=== PATIENT | female | born 1950 | race Asian ===

== ENCOUNTER → 2016-06-21 | Outpatient (CLI) | payer MEDICARE, OTHER ==
[~2016-06-21] MED LIST: ALEN70TA5 PO; CALC1TAB PO; CHOL20003 PO; HYDR12.58 PO; HYDR25TA6 PO; LORA1TAB46 PO; METO10TA82 PO; MULT-750 PO; OMNIPAQUE 350 MG/ML, 100ML BOTTLE ONE; ONDA4TAB7 PO; OXYC-223 PO; [UNRECOGNIZED DRUG - OTHER] PO; [UNRECOGNIZED DRUG - OTHER] PO
== END | disposition home or self-care (01) ==
LOC: CFH 11:25
PROVIDERS: ATTEND Specialist
DX: C56.9 Malignant neoplasm of unspecified ovary (principal); N13.30 Unspecified hydronephrosis; E04.2 Nontoxic multinodular goiter; J98.11 Atelectasis
CPT/HCPCS: 71260; 74177; Q9967

== ENCOUNTER → 2016-12-25 | Outpatient (CLI) | payer MEDICARE, OTHER ==
[~2016-12-25] MED LIST changes: +CHOL2000 PO; -CHOL20003 PO; -OXYC-223 PO; +OXYC-306 PO
== END | disposition home or self-care (01) ==
LOC: CFH 09:03
PROVIDERS: ATTEND Specialist
DX: C79.89 Secondary malignant neoplasm of other specified sites (principal); C56.9 Malignant neoplasm of unspecified ovary; E04.2 Nontoxic multinodular goiter; J84.10 Pulmonary fibrosis, unspecified; N13.30 Unspecified hydronephrosis
CPT/HCPCS: 71260; 74177; 82565; Q9967

== ENCOUNTER → 2017-07-25 | Outpatient (CLI) | payer MEDICARE, OTHER | END | disposition home or self-care (01) | LOC: RAD 11:49 | PROVIDERS: ATTEND Specialist | DX: C79.89 Secondary malignant neoplasm of other specified sites (principal); C56.9 Malignant neoplasm of unspecified ovary; N13.30 Unspecified hydronephrosis; J90 Pleural effusion, not elsewhere classified; R91.8 Other nonspecific abnormal finding of lung field | CPT/HCPCS: 71260; 74177; Q9967 ==

== ENCOUNTER 2017-08-05 13:53 | Inpatient (IN) | payer MEDICARE, OTHER ==
[~2017-08-05] VITALS: Ht 160 cm; Wt 53.2 kg
[~2017-08-05 13:53] MED LIST changes: -OMNIPAQUE 350 MG/ML, 100ML BOTTLE ONE
[2017-08-05] MEDS ORDERED: OXYC-306 PO (13:57)
[2017-08-05] MEDS ORDERED: TUMS (13:57)
[2017-08-05] MEDS ORDERED: ASCO-90 PO (13:57)
[2017-08-05] MEDS ORDERED: DOCU240C53 PO (13:57)
[2017-08-05] MEDS ORDERED: MAGN400O7 PO (13:57)
[2017-08-05] MEDS ORDERED: CHOL200024 PO (13:57)
[2017-08-05] MEDS ORDERED: RANI150T23 PO (13:57)
[2017-08-05] MEDS ORDERED: METHYLNALTREXONE 12 MG/0.6 ML SQ ONE ×3 (14:30→18:30)
[2017-08-05] MEDS ORDERED: FAMOTIDINE 20 MG/2 ML IVP ONE (14:30)
[2017-08-05] MEDS ORDERED: SODIUM CHLORIDE FLUSH 10ML SYR IVF ONE (14:30)
[2017-08-05] MEDS ORDERED: SODIUM CHLORIDE 0.9% 1,000ML IVBOLUS ONE (14:30)
[2017-08-05] MEDS ORDERED: ONDANSETRON ODT 4 MG PO ONE (14:30)
[2017-08-05] MEDS ORDERED: FAMOTIDINE 20 MG/2 ML ONE (14:37)
[2017-08-05] MEDS ORDERED: ONDANSETRON ODT 4 MG ONE (14:37)
[2017-08-05] MEDS ORDERED: SODIUM CHLORIDE 0.9% 1,000 ML IV ONE (16:51)
[2017-08-05] MEDS ORDERED: SODIUM CHLORIDE FLUSH 10ML SYR IVF PRN (17:00)
[2017-08-05] MEDS ORDERED: ENALAPRILAT 1.25 MG/ML, 2ML IVPush PRN (17:30)
[2017-08-05] MEDS ORDERED: PROMETHAZINE 25 MG/ML, 1ML IM PRN (17:30)
[2017-08-05] MEDS ORDERED: METOCLOPRAMIDE 5 MG/ML, 2ML IVPush PRN (17:30)
[2017-08-05] MEDS ORDERED: ONDANSETRON 2MG/ML, 2ML IVPush PRN (17:30)
[2017-08-05] MEDS ORDERED: morphine SULFATE 10 MG/ML, 1ML IVPush PRN (17:30)
[2017-08-05] MEDS ORDERED: LABETALOL 5MG/ML, 20ML IVPush PRN (17:30)
[2017-08-05] MEDS ORDERED: PINK LADY ENEMA 1,000 ML PR ONE (18:00)
[2017-08-05] MEDS: NS + 20MEQ KCL 1,000 ML IV SCH (18:13)
[2017-08-05] MEDS: ENOXAPARIN 40 MG/0.4 ML SQ SCH ×2 (18:15→18:21)
[2017-08-05 18:17] VITALS: BP 138/74
[2017-08-06 02:40] VITALS: BP 167/75
[2017-08-06] MEDS: NS + 20MEQ KCL 1,000 ML IV SCH (03:22)
[2017-08-06 04:20] LABS: BASOPHILS # (AUTO) 0.02 x10^3/uL (0-0.1); BASOPHILS % (AUTO) 0 % (0-1); EOSINOPHILS # (AUTO) 0.16 x10^3/uL (0-0.4); EOSINOPHILS % (AUTO) 1 % (1-7); LYMPHOCYTES % (AUTO) 16 % (22-44); MD NO; MEAN CORPUSCULAR HEMOGLOBIN 27.7 pg (27.0-34.8); MEAN CORPUSCULAR HGB CONC 32.6 g/dL (32.4-35.8); MEAN CORPUSCULAR VOLUME 84.9 fL (80-100); MEAN PLATELET VOLUME 8.1 fL (7.4-10.4); MONOCYTES # (AUTO) 1.29 x10^3/uL (0.2-0.8); MONOCYTES % (AUTO) 10 % (2-9); NEUTROPHILS # (AUTO) 9.52 x10^3/uL (1.8-6.8); NEUTROPHILS % (AUTO) 73 % (42-75); PLATELET COUNT 375 x10^3/uL (130-400); RED BLOOD COUNT 3.93 x10^6/uL (3.82-5.3); RED CELL DISTRIBUTION WIDTH 14.3 % (9.6-15.2)
[2017-08-06 04:29] LABS: ANION GAP 11 mmol/L (5-15); CALCIUM 9.1 mg/dL (8.5-10.1); CHLORIDE 105 mmol/L (98-107)
[2017-08-06 04:31] LABS: CREATININE 2.22 mg/dL (0.55-1.02)
[2017-08-06] MEDS: LACTATED RINGERS 1,000 ML IV SCH ×4 (07:56→22:59)
[2017-08-06 08:03] VITALS: BP 145/75
[2017-08-06] MEDS: ONDANSETRON ODT 4 MG PO PRN (08:08)
[2017-08-06] MEDS: OXYcodone/APAP 7.5/325MG TABLET PO PRN ×2 (08:08→18:17)
[2017-08-06 15:00] LABS: ANION GAP 9 mmol/L (5-15); CALCIUM 8.9 mg/dL (8.5-10.1); CHLORIDE 103 mmol/L (98-107); CREATININE 2.29 mg/dL (0.55-1.02)
[2017-08-06 15:28] VITALS: BP 119/66
[2017-08-06] MEDS: METOCLOPRAMIDE 5 MG/ML, 2ML IVPush PRN (15:45)
[2017-08-06 17:18] LABS: MICROSCOPIC NOT IND
[2017-08-06 17:21] LABS: CULTURE INDICATED? NO
[2017-08-06 17:33] LABS: CREATININE,URINE RANDOM 52.1 mg/dL
[2017-08-06] MEDS: ENOXAPARIN 30 MG/0.3 ML SQ SCH (17:52)
[2017-08-06 20:00] VITALS: BP_SYST 111; BP_SYST 124; BP_DIAS 63
[2017-08-06] MEDS ORDERED: DOCUSATE 100 MG CAPSULE PO SCH (21:30)
[2017-08-07 02:00] VITALS: BP 125/63
[2017-08-07] MEDS: LACTATED RINGERS 1,000 ML IV SCH (03:39)
[2017-08-07 07:38] VITALS: BP 166/83
[2017-08-07] MEDS ORDERED: GLYCERIN ADULT SUPP PR ONE (08:00)
[2017-08-07 08:12] LABS: BASOPHILS % (AUTO) 1 % (0-1); EOSINOPHILS # (AUTO) 0.21 x10^3/uL (0-0.4); EOSINOPHILS % (AUTO) 1 % (1-7); LYMPHOCYTES % (AUTO) 12 % (22-44); MD NO; MEAN CORPUSCULAR HEMOGLOBIN 27.6 pg (27.0-34.8); MEAN CORPUSCULAR HGB CONC 32.6 g/dL (32.4-35.8); MEAN CORPUSCULAR VOLUME 84.8 fL (80-100); MEAN PLATELET VOLUME 7.8 fL (7.4-10.4); MONOCYTES % (AUTO) 6 % (2-9); NEUTROPHILS # (AUTO) 12.92 x10^3/uL (1.8-6.8); NEUTROPHILS % (AUTO) 80 % (42-75); PLATELET COUNT 398 x10^3/uL (130-400); RED BLOOD COUNT 4.21 x10^6/uL (3.82-5.3); RED CELL DISTRIBUTION WIDTH 14.3 % (9.6-15.2)
[2017-08-07 08:13] LABS: ALANINE AMINOTRANSFERASE 13 U/L (12-78); ALBUMIN 2.4 g/dL (3.4-5.0); ANION GAP 10 mmol/L (5-15); CALCIUM 8.9 mg/dL (8.5-10.1); CHLORIDE 105 mmol/L (98-107); CREATININE 2.05 mg/dL (0.55-1.02)
[2017-08-07 08:15] LABS: ALKALINE PHOSPHATASE 111 U/L (45-117); BILIRUBIN,TOTAL 0.3 mg/dL (0.2-1.0)
[2017-08-07] MEDS: ONDANSETRON ODT 4 MG PO PRN ×2 (08:20→15:14)
[2017-08-07] MEDS: DOCUSATE 100 MG CAPSULE PO SCH ×2 (08:20→21:00)
[2017-08-07] MEDS: METOCLOPRAMIDE 5 MG/ML, 2ML IVPush PRN ×2 (08:21→15:14)
[2017-08-07] MEDS ORDERED: POLYETHYLENE GLYCOL 17 GM PACKET PO ONE (08:30)
[2017-08-07] MEDS: OXYcodone/APAP 7.5/325MG TABLET PO PRN (11:52)
[2017-08-07 12:05] VITALS: BP 133/71
[2017-08-07] MEDS ORDERED: GOLYTELY 4,000ML ORAL.SOL PO ONE (12:30)
[2017-08-07] MEDS ORDERED: METHYLNALTREXONE 12 MG/0.6 ML SQ SCH (15:00)
[2017-08-07] MEDS ORDERED: PINK LADY ENEMA 1,000 ML PR ONE (15:00)
[2017-08-07] MEDS ORDERED: MAGNESIUM CITRATE 300ML ORAL SOL PO ONE (15:00)
[2017-08-07] MEDS: ENOXAPARIN 30 MG/0.3 ML SQ SCH (18:00)
[2017-08-07 20:17] VITALS: BP 145/68
[2017-08-08 02:00] VITALS: BP 124/66
[2017-08-08] MEDS: DOCUSATE 100 MG CAPSULE PO SCH (10:30)
[2017-08-08] MEDS: ONDANSETRON ODT 4 MG PO PRN (12:17)
[2017-08-08 13:19] VITALS: BP 158/83
== END 2017-08-08 16:04 | disposition home or self-care (01) | DRG 682 ==
LOC: ED 16:24 → EDIP 16:51 → 3NW 17:35
PROVIDERS: ADMIT Hospitalist; ATTEND Hospitalist
DX: N17.9 Acute kidney failure, unspecified (principal); R65.11 Systemic inflammatory response syndrome (SIRS) of non-infectious origin with acute organ dysfunction; E43 Unspecified severe protein-calorie malnutrition; E87.1 Hypo-osmolality and hyponatremia; D72.829 Elevated white blood cell count, unspecified; G89.29 Other chronic pain; T40.605A Adverse effect of unspecified narcotics, initial encounter; Z66 Do not resuscitate; N13.30 Unspecified hydronephrosis; E88.09 Other disorders of plasma-protein metabolism, not elsewhere classified; K59.03 Drug induced constipation; E86.1 Hypovolemia; E86.0 Dehydration; N18.9 Chronic kidney disease, unspecified; I12.9 Hypertensive chronic kidney disease with stage 1 through stage 4 chronic kidney disease, or unspecified chronic kidney disease; Z85.43 Personal history of malignant neoplasm of ovary; Z79.891 Long term (current) use of opiate analgesic; Z90.710 Acquired absence of both cervix and uterus
CPT/HCPCS: 36415; 74018; 74021; 74176; 76770; 80048; 80053; 81003; 82436; 82570; 83735; 84100; 84133; 84156; 84300; 85025; 96361; 96372; 96374; 99285; J1650; J3480; Q0162; J2765; J7030; J7120; S0028

== ENCOUNTER 2017-08-11 10:10 | Inpatient (IN) | payer MEDICARE, OTHER ==
[~2017-08-11] VITALS: Ht 160 cm; Wt 69.3 kg
[~2017-08-11 10:10] MED LIST changes: +ASCO-90 PO; +CHOL200024 PO; +DOCU240C53 PO; +MAGN400O7 PO; +RANI150T23 PO; +TUMS
[2017-08-11] MEDS ORDERED: LACTATED RINGERS 1,000 ML IV SCH (13:05)
[2017-08-11 13:24] VITALS: BP 161/89
[2017-08-11] MEDS ORDERED: TAMSULOSIN 0.4 MG CAP.ER.24H PO ONE (13:30)
[2017-08-11] MEDS ORDERED: SCOPOLAMINE PATCH, 1.5MG PATCH.TD72 TD ONE ×2 (13:30→13:58)
[2017-08-11] MEDS ORDERED: GABAPENTIN 300 MG CAPSULE PO ONE (13:30)
[2017-08-11] MEDS ORDERED: ACETAMINOPHEN 500 MG TABLET PO ONE (13:30)
[2017-08-11] MEDS ORDERED: METOCLOPRAMIDE 10MG TABLET PO ONE (13:30)
[2017-08-11] MEDS ORDERED: ONDANSETRON ODT 8 MG PO ONE (13:30)
[2017-08-11] MEDS ORDERED: ACETAMINOPHEN 500 MG TABLET ONE (13:57)
[2017-08-11] MEDS ORDERED: TAMSULOSIN 0.4 MG CAP.ER.24H ONE (13:57)
[2017-08-11] MEDS ORDERED: FAMOTIDINE 20 MG TABLET ONE (13:58)
[2017-08-11] MEDS ORDERED: ONDANSETRON ODT 8 MG ONE (13:59)
[2017-08-11] MEDS ORDERED: GABAPENTIN 300 MG CAPSULE ONE (13:59)
[2017-08-11] MEDS ORDERED: METOCLOPRAMIDE 10MG TABLET ONE (14:08)
[2017-08-11] MEDS ORDERED: MIDAZOLAM 1 MG/ML, 2ML ONE (19:05)
[2017-08-11] MEDS ORDERED: FENTANYL PF 100 MCG/2ML ONE ×3 (19:08→22:00)
[2017-08-11] MEDS ORDERED: BUPIVACAINE/PF-EPI 0.5% 1:200K ONE (20:25)
[2017-08-11] MEDS ORDERED: PHENYLEPHRINE 10 MG/ML ONE (20:41)
[2017-08-11] MEDS ORDERED: ROCURONIUM 10 MG/ML,10ML ONE (20:41)
[2017-08-11] MEDS ORDERED: DEXAMETHASONE 4 MG/ML, 1ML ONE (20:41)
[2017-08-11] MEDS ORDERED: CEFAZOLIN 1,000 MG ONE (20:41)
[2017-08-11] MEDS ORDERED: NEOSTIGMINE 1 MG/ML, 10ML ONE (20:41)
[2017-08-11] MEDS ORDERED: GLYCOPYRROLATE 0.2MG/1ML, 5ML ONE (20:41)
[2017-08-11] MEDS ORDERED: PROPOFOL 10 MG/ML, 20ML ONE (20:41)
[2017-08-11] MEDS ORDERED: SUCCINYLCHOLINE 20 MG/ML, 10ML ONE (20:41)
[2017-08-11] MEDS ORDERED: OXYcodone 5 MG/5 ML ORAL.SOL UDC ONE (22:00)
[2017-08-11] MEDS: FENTANYL PF 100 MCG/2ML IV PRN ×3 (22:01→22:20)
[2017-08-11] MEDS ORDERED: morphine SULFATE 10 MG/ML, 1ML ONE (22:21)
[2017-08-11] MEDS: morphine SULFATE 10 MG/ML, 1ML IV PRN ×2 (22:23→22:29)
[2017-08-11] MEDS ORDERED: OXYcodone 5 MG/5 ML ORAL.SOL UDC PO PRN (22:30)
[2017-08-11] MEDS ORDERED: MORPHINE SULFATE 4 MG/ML, 1ML IV PRN (23:45)
[2017-08-11] MEDS ORDERED: OXYcodone/APAP 5/325MG TABLET PO PRN (23:45)
[2017-08-11] MEDS ORDERED: morphine SULFATE 10 MG/ML, 1ML IV PRN (23:45)
[2017-08-12 00:15] VITALS: BP 107/63
[2017-08-12] MEDS: D5%-0.45% NACL 1,000 ML IV SCH ×4 (01:56→19:11)
[2017-08-12 04:18] VITALS: BP 119/64
[2017-08-12 06:10] LABS: ANION GAP 11 mmol/L (5-15); CALCIUM 8.3 mg/dL (8.5-10.1); CHLORIDE 107 mmol/L (98-107); CREATININE 1.81 mg/dL (0.55-1.02)
[2017-08-12 06:15] LABS: BASOPHILS % (AUTO) 0 % (0-1); EOSINOPHILS % (AUTO) 0 % (1-7); LYMPHOCYTES # (AUTO) 0.74 x10^3/uL (1-3.4); LYMPHOCYTES % (AUTO) 6 % (22-44); MD NO; MEAN CORPUSCULAR HEMOGLOBIN 27.4 pg (27.0-34.8); MEAN CORPUSCULAR HGB CONC 32.2 g/dL (32.4-35.8); MEAN CORPUSCULAR VOLUME 85.2 fL (80-100); MEAN PLATELET VOLUME 8.2 fL (7.4-10.4); MONOCYTES # (AUTO) 0.15 x10^3/uL (0.2-0.8); MONOCYTES % (AUTO) 1 % (2-9); NEUTROPHILS # (AUTO) 11.48 x10^3/uL (1.8-6.8); NEUTROPHILS % (AUTO) 93 % (42-75); PLATELET COUNT 389 x10^3/uL (130-400); RED CELL DISTRIBUTION WIDTH 14.7 % (9.6-15.2)
[2017-08-12 08:00] VITALS: BP 124/70
[2017-08-12] MEDS ORDERED: FAMOTIDINE 20 MG TABLET PO SCH (09:00)
[2017-08-12] MEDS: SODIUM CHLORIDE FLUSH 10ML SYR IVF SCH ×3 (09:00→19:35)
[2017-08-12 13:10] VITALS: BP 102/63
[2017-08-12 20:24] VITALS: BP 154/75
[2017-08-13 01:51] VITALS: BP 125/70
[2017-08-13 06:05] LABS: BASOPHILS # (AUTO) 0.04 x10^3/uL (0-0.1); BASOPHILS % (AUTO) 0 % (0-1); EOSINOPHILS % (AUTO) 2 % (1-7); LYMPHOCYTES # (AUTO) 1.97 x10^3/uL (1-3.4); LYMPHOCYTES % (AUTO) 15 % (22-44); MD NO; MEAN CORPUSCULAR HEMOGLOBIN 27.2 pg (27.0-34.8); MEAN CORPUSCULAR HGB CONC 32.1 g/dL (32.4-35.8); MEAN CORPUSCULAR VOLUME 84.7 fL (80-100); MONOCYTES # (AUTO) 1.21 x10^3/uL (0.2-0.8); MONOCYTES % (AUTO) 9 % (2-9); NEUTROPHILS # (AUTO) 9.58 x10^3/uL (1.8-6.8); NEUTROPHILS % (AUTO) 74 % (42-75); PLATELET COUNT 405 x10^3/uL (130-400); RED BLOOD COUNT 3.56 x10^6/uL (3.82-5.3); RED CELL DISTRIBUTION WIDTH 14.5 % (9.6-15.2)
[2017-08-13 06:18] LABS: ANION GAP 6 mmol/L (5-15); CALCIUM 7.7 mg/dL (8.5-10.1); CHLORIDE 106 mmol/L (98-107)
[2017-08-13 06:56] VITALS: BP 118/68
[2017-08-13] MEDS: FAMOTIDINE 20 MG TABLET PO SCH (08:05)
[2017-08-13] MEDS: SODIUM CHLORIDE FLUSH 10ML SYR IVF SCH ×2 (08:05→21:01)
[2017-08-13 10:20] VITALS: BP 124/61
[2017-08-13 12:55] VITALS: BP 118/73
[2017-08-13] MEDS: OXYcodone/APAP 7.5/325MG TABLET PO PRN (18:46)
[2017-08-13 19:25] VITALS: BP 122/71
[2017-08-13] MEDS: D5%-0.45% NACL 1,000 ML IV SCH (22:00)
[2017-08-14 04:21] VITALS: BP 105/65
[2017-08-14] MEDS: OXYcodone/APAP 7.5/325MG TABLET PO PRN (04:38)
[2017-08-14 07:47] VITALS: BP 142/81
[2017-08-14] MEDS: D5%-0.45% NACL 1,000 ML IV SCH (08:00)
[2017-08-14] MEDS ORDERED: OXYC-306 PO (08:23)
[2017-08-14] MEDS ORDERED: ONDA4TAB10 PO (08:23)
[2017-08-14] MEDS: SODIUM CHLORIDE FLUSH 10ML SYR IVF SCH (08:52)
[2017-08-14] MEDS: FAMOTIDINE 20 MG TABLET PO SCH (08:52)
== END 2017-08-14 14:00 | disposition home or self-care (01) | DRG 580 ==
LOC: ORIP 10:10 → 4NOR 22:55 → 3NW 08-13 10:18
PROVIDERS: ADMIT Specialist; ATTEND Specialist
PROC: 3E0T3BZ Introduction of Anesthetic Agent into Peripheral Nerves and Plexi, Percutaneous Approach (ICD-10-PCS; 2017-08-11)
PROC: 0WBF0ZZ Excision of Abdominal Wall, Open Approach (ICD-10-PCS; principal; 2017-08-11 16:30)
DX: C79.2 Secondary malignant neoplasm of skin (principal); C56.9 Malignant neoplasm of unspecified ovary; J90 Pleural effusion, not elsewhere classified; N13.30 Unspecified hydronephrosis; I10 Essential (primary) hypertension; D72.829 Elevated white blood cell count, unspecified
CPT/HCPCS: 36415; 80048; 85025; 86850; 86900; 88305; C1729; J0690; J1100; J2250; J2704; J2710; J3010; J3490; Q0162; J0330; J2270; J2370; J7120

== ENCOUNTER 2017-08-19 17:38 | Inpatient (IN) | payer MEDICARE, OTHER ==
[~2017-08-19] VITALS: Ht 160 cm; Wt 61.0 kg
[~2017-08-19 17:38] MED LIST changes: +ONDA4TAB10 PO
[2017-08-19] MEDS ORDERED: METHYLNALTREXONE 12 MG/0.6 ML SQ ONE ×2 (18:28→18:30)
[2017-08-19 18:57] LABS: BASOPHILS # (AUTO) 0.03 x10^3/uL (0-0.1); BASOPHILS % (AUTO) 0 % (0-1); EOSINOPHILS # (AUTO) 0.17 x10^3/uL (0-0.4); EOSINOPHILS % (AUTO) 1 % (1-7); LYMPHOCYTES # (AUTO) 2.53 x10^3/uL (1-3.4); LYMPHOCYTES % (AUTO) 17 % (22-44); MD NO; MEAN CORPUSCULAR HEMOGLOBIN 27.5 pg (27.0-34.8); MEAN CORPUSCULAR HGB CONC 32.5 g/dL (32.4-35.8); MEAN CORPUSCULAR VOLUME 84.5 fL (80-100); MEAN PLATELET VOLUME 7.8 fL (7.4-10.4); MONOCYTES # (AUTO) 1.23 x10^3/uL (0.2-0.8); MONOCYTES % (AUTO) 8 % (2-9); NEUTROPHILS # (AUTO) 11.32 x10^3/uL (1.8-6.8); NEUTROPHILS % (AUTO) 74 % (42-75); PLATELET COUNT 483 x10^3/uL (130-400); RED BLOOD COUNT 3.88 x10^6/uL (3.82-5.3); RED CELL DISTRIBUTION WIDTH 14.1 % (9.6-15.2)
[2017-08-19 19:02] LABS: ALANINE AMINOTRANSFERASE 10 U/L (12-78); ALBUMIN 2.1 g/dL (3.4-5.0); ANION GAP 12 mmol/L (5-15); CHLORIDE 103 mmol/L (98-107); CREATININE 1.48 mg/dL (0.55-1.02)
[2017-08-19 19:04] LABS: ALKALINE PHOSPHATASE 120 U/L (45-117); BILIRUBIN,TOTAL 0.4 mg/dL (0.2-1.0); TOTAL PROTEIN 7.5 g/dL (6.4-8.2)
[2017-08-19] MEDS: PINK LADY ENEMA 1,000 ML PR ONE ×2 (19:30→20:30)
[2017-08-19] MEDS: HEPARIN 5,000 UNITS/ML, 1ML SQ SCH (21:00)
[2017-08-19] MEDS ORDERED: ONDANSETRON ODT 4 MG PO PRN (21:00)
[2017-08-19] MEDS ORDERED: POLYETHYLENE GLYCOL 17 GM PACKET PO PRN (21:00)
[2017-08-19] MEDS ORDERED: ONDANSETRON 2MG/ML, 2ML IVPush PRN (21:00)
[2017-08-19] MEDS ORDERED: BISACODYL 10 MG SUPP PR PRN (21:00)
[2017-08-19] MEDS ORDERED: PROMETHAZINE 25 MG/ML, 1ML IM PRN (21:00)
[2017-08-19] MEDS ORDERED: hydrALAzine 20 MG/ML, 1ML IVPush PRN (21:00)
[2017-08-19] MEDS ORDERED: morphine SULFATE 10 MG/ML, 1ML IVPush PRN (21:00)
[2017-08-19 21:38] LABS: FREE T4 (FREE THYROXINE) 1.45 ng/dL (0.76-1.46); THYROID STIMULATING HORMONE 6.72 mIU/L (0.358-3.740)
[2017-08-19 21:58] VITALS: BP 137/69
[2017-08-20 03:55] VITALS: BP 126/62
[2017-08-20 05:03] LABS: BASOPHILS # (AUTO) 0.07 x10^3/uL (0-0.1); BASOPHILS % (AUTO) 1 % (0-1); EOSINOPHILS # (AUTO) 0.17 x10^3/uL (0-0.4); EOSINOPHILS % (AUTO) 1 % (1-7); LYMPHOCYTES # (AUTO) 2.17 x10^3/uL (1-3.4); LYMPHOCYTES % (AUTO) 15 % (22-44); MD NO; MEAN CORPUSCULAR HEMOGLOBIN 27.2 pg (27.0-34.8); MEAN CORPUSCULAR HGB CONC 32.1 g/dL (32.4-35.8); MEAN CORPUSCULAR VOLUME 84.8 fL (80-100); MEAN PLATELET VOLUME 7.7 fL (7.4-10.4); MONOCYTES # (AUTO) 1.07 x10^3/uL (0.2-0.8); MONOCYTES % (AUTO) 8 % (2-9); NEUTROPHILS # (AUTO) 10.77 x10^3/uL (1.8-6.8); NEUTROPHILS % (AUTO) 76 % (42-75); PLATELET COUNT 494 x10^3/uL (130-400); RED BLOOD COUNT 3.78 x10^6/uL (3.82-5.3); RED CELL DISTRIBUTION WIDTH 14.5 % (9.6-15.2)
[2017-08-20 05:12] LABS: CHLORIDE 103 mmol/L (98-107)
[2017-08-20 05:13] LABS: ANION GAP 10 mmol/L (5-15); CALCIUM 7.9 mg/dL (8.5-10.1)
[2017-08-20 05:18] LABS: ALANINE AMINOTRANSFERASE 9 U/L (12-78); ALKALINE PHOSPHATASE 115 U/L (45-117); BILIRUBIN,TOTAL 0.7 mg/dL (0.2-1.0); CREATININE 1.45 mg/dL (0.55-1.02); TOTAL PROTEIN 7.3 g/dL (6.4-8.2)
[2017-08-20] MEDS: D5%-0.9% NACL+KCL 20MEQ 1,000 ML IV SCH ×2 (06:48→07:15)
[2017-08-20] MEDS: HEPARIN 5,000 UNITS/ML, 1ML SQ SCH ×3 (06:49→22:16)
[2017-08-20 08:16] VITALS: BP 126/72
[2017-08-20] MEDS: SENNA/DOCUSATE TABLET PO SCH (09:13)
[2017-08-20] MEDS: CHOLECALCIFEROL 1,000 UNIT TABLET PO SCH (09:13)
[2017-08-20] MEDS: MULTIVITAMIN 1 TABLET PO SCH (09:13)
[2017-08-20] MEDS: FAMOTIDINE 20 MG TABLET PO SCH (09:13)
[2017-08-20 11:36] LABS: MICROSCOPIC AUTO
[2017-08-20 11:42] LABS: CULTURE INDICATED? YES
[2017-08-20 13:53] VITALS: BP 127/69
[2017-08-20] MEDS: OXYcodone IR 5MG TABLET PO PRN (16:09)
[2017-08-20 19:04] VITALS: BP 138/73
[2017-08-21 01:01] VITALS: BP 117/67
[2017-08-21] MEDS: OXYcodone IR 5MG TABLET PO PRN (01:29)
[2017-08-21 04:31] LABS: BASOPHILS # (AUTO) 0.05 x10^3/uL (0-0.1); BASOPHILS % (AUTO) 0 % (0-1); EOSINOPHILS # (AUTO) 0.18 x10^3/uL (0-0.4); EOSINOPHILS % (AUTO) 1 % (1-7); LYMPHOCYTES % (AUTO) 18 % (22-44); MD NO; MEAN CORPUSCULAR HEMOGLOBIN 28.1 pg (27.0-34.8); MEAN CORPUSCULAR HGB CONC 33.7 g/dL (32.4-35.8); MEAN CORPUSCULAR VOLUME 83.4 fL (80-100); MEAN PLATELET VOLUME 7.7 fL (7.4-10.4); MONOCYTES # (AUTO) 1.17 x10^3/uL (0.2-0.8); MONOCYTES % (AUTO) 9 % (2-9); NEUTROPHILS # (AUTO) 9.35 x10^3/uL (1.8-6.8); NEUTROPHILS % (AUTO) 71 % (42-75); PLATELET COUNT 489 x10^3/uL (130-400); RED CELL DISTRIBUTION WIDTH 14.1 % (9.6-15.2)
[2017-08-21 04:42] LABS: ANION GAP 8 mmol/L (5-15); CALCIUM 8.3 mg/dL (8.5-10.1); CHLORIDE 103 mmol/L (98-107); CREATININE 1.36 mg/dL (0.55-1.02)
[2017-08-21] MEDS: HEPARIN 5,000 UNITS/ML, 1ML SQ SCH ×3 (06:18→22:00)
[2017-08-21 07:09] VITALS: BP 133/72
[2017-08-21] MEDS: CHOLECALCIFEROL 1,000 UNIT TABLET PO SCH (07:53)
[2017-08-21] MEDS: FAMOTIDINE 20 MG TABLET PO SCH (07:53)
[2017-08-21] MEDS: SENNA/DOCUSATE TABLET PO SCH (07:53)
[2017-08-21] MEDS: MULTIVITAMIN 1 TABLET PO SCH (07:53)
[2017-08-21] MEDS ORDERED: PINK LADY ENEMA 1,000 ML PR ONE (11:00)
[2017-08-21 12:58] VITALS: BP 171/80
[2017-08-21 18:42] VITALS: BP 138/75
[2017-08-22 00:32] VITALS: BP 126/72
[2017-08-22] MEDS: HEPARIN 5,000 UNITS/ML, 1ML SQ SCH ×3 (05:55→22:12)
[2017-08-22 08:50] VITALS: BP 128/75
[2017-08-22] MEDS: MULTIVITAMIN 1 TABLET PO SCH (11:27)
[2017-08-22] MEDS: FAMOTIDINE 20 MG TABLET PO SCH (11:27)
[2017-08-22] MEDS: CHOLECALCIFEROL 1,000 UNIT TABLET PO SCH (11:27)
[2017-08-22] MEDS: SENNA/DOCUSATE TABLET PO SCH (11:27)
[2017-08-22 15:58] VITALS: BP 132/74
[2017-08-22 18:41] VITALS: BP 137/78
[2017-08-23 00:58] VITALS: BP 121/71
[2017-08-23 05:28] LABS: BASOPHILS # (AUTO) 0.02 x10^3/uL (0-0.1); BASOPHILS % (AUTO) 0 % (0-1); EOSINOPHILS # (AUTO) 0.16 x10^3/uL (0-0.4); EOSINOPHILS % (AUTO) 1 % (1-7); LYMPHOCYTES # (AUTO) 1.95 x10^3/uL (1-3.4); LYMPHOCYTES % (AUTO) 15 % (22-44); MD NO; MEAN CORPUSCULAR HEMOGLOBIN 27.5 pg (27.0-34.8); MEAN CORPUSCULAR HGB CONC 32.9 g/dL (32.4-35.8); MEAN CORPUSCULAR VOLUME 83.6 fL (80-100); MEAN PLATELET VOLUME 7.7 fL (7.4-10.4); MONOCYTES # (AUTO) 0.97 x10^3/uL (0.2-0.8); MONOCYTES % (AUTO) 8 % (2-9); NEUTROPHILS # (AUTO) 9.61 x10^3/uL (1.8-6.8); NEUTROPHILS % (AUTO) 76 % (42-75); PLATELET COUNT 494 x10^3/uL (130-400); RED BLOOD COUNT 3.56 x10^6/uL (3.82-5.3); RED CELL DISTRIBUTION WIDTH 14.5 % (9.6-15.2)
[2017-08-23 05:35] LABS: ANION GAP 7 mmol/L (5-15); CALCIUM 8.7 mg/dL (8.5-10.1); CHLORIDE 104 mmol/L (98-107); CREATININE 1.27 mg/dL (0.55-1.02)
[2017-08-23] MEDS: HEPARIN 5,000 UNITS/ML, 1ML SQ SCH ×3 (06:02→19:46)
[2017-08-23 07:10] VITALS: BP 112/73
[2017-08-23] MEDS ORDERED: LACTULOSE 3.3 GM/5 ML ORAL.SOL RC ONE (10:00)
[2017-08-23] MEDS: MULTIVITAMIN 1 TABLET PO SCH (12:34)
[2017-08-23] MEDS: CHOLECALCIFEROL 1,000 UNIT TABLET PO SCH (12:34)
[2017-08-23] MEDS: FAMOTIDINE 20 MG TABLET PO SCH (12:35)
[2017-08-23] MEDS: SENNA/DOCUSATE TABLET PO SCH (12:36)
[2017-08-23] MEDS: POLYETHYLENE GLYCOL 17 GM PACKET PO SCH (12:39)
[2017-08-23 18:49] VITALS: BP 109/69
[2017-08-24 00:52] VITALS: BP 99/62
[2017-08-24 04:55] LABS: BASOPHILS # (AUTO) 0.09 x10^3/uL (0-0.1); BASOPHILS % (AUTO) 1 % (0-1); EOSINOPHILS # (AUTO) 0.19 x10^3/uL (0-0.4); EOSINOPHILS % (AUTO) 2 % (1-7); LYMPHOCYTES # (AUTO) 1.84 x10^3/uL (1-3.4); LYMPHOCYTES % (AUTO) 14 % (22-44); MD NO; MEAN CORPUSCULAR HEMOGLOBIN 26.6 pg (27.0-34.8); MEAN CORPUSCULAR HGB CONC 31.9 g/dL (32.4-35.8); MEAN CORPUSCULAR VOLUME 83.4 fL (80-100); MEAN PLATELET VOLUME 7.9 fL (7.4-10.4); MONOCYTES % (AUTO) 8 % (2-9); NEUTROPHILS % (AUTO) 76 % (42-75); PLATELET COUNT 513 x10^3/uL (130-400); RED BLOOD COUNT 3.44 x10^6/uL (3.82-5.3); RED CELL DISTRIBUTION WIDTH 14.3 % (9.6-15.2)
[2017-08-24 05:04] LABS: ALBUMIN 1.8 g/dL (3.4-5.0); ANION GAP 12 mmol/L (5-15); CALCIUM 8.4 mg/dL (8.5-10.1); CHLORIDE 101 mmol/L (98-107)
[2017-08-24 05:11] LABS: ALKALINE PHOSPHATASE 94 U/L (45-117); BILIRUBIN,TOTAL 0.7 mg/dL (0.2-1.0); CREATININE 1.18 mg/dL (0.55-1.02); TOTAL PROTEIN 6.9 g/dL (6.4-8.2)
[2017-08-24 05:13] LABS: ALANINE AMINOTRANSFERASE < 6 U/L (12-78)
[2017-08-24] MEDS: HEPARIN 5,000 UNITS/ML, 1ML SQ SCH ×3 (05:30→22:17)
[2017-08-24 08:26] VITALS: BP 137/72
[2017-08-24] MEDS: CHOLECALCIFEROL 1,000 UNIT TABLET PO SCH (09:25)
[2017-08-24] MEDS: SENNA/DOCUSATE TABLET PO SCH (09:25)
[2017-08-24] MEDS: FAMOTIDINE 20 MG TABLET PO SCH (09:25)
[2017-08-24] MEDS: MULTIVITAMIN 1 TABLET PO SCH (09:25)
[2017-08-24] MEDS: POLYETHYLENE GLYCOL 17 GM PACKET PO SCH (14:40)
[2017-08-24] MEDS: OXYcodone IR 5MG TABLET PO PRN (14:40)
[2017-08-24 14:52] VITALS: BP 106/62
[2017-08-24 19:17] VITALS: BP 124/74
[2017-08-25 01:11] VITALS: BP 109/66
[2017-08-25] MEDS: HEPARIN 5,000 UNITS/ML, 1ML SQ SCH (04:39)
[2017-08-25 07:18] VITALS: BP 120/70
[2017-08-25] MEDS ORDERED: BISA10SU54 PR (07:40)
[2017-08-25] MEDS ORDERED: LINA145C PO (07:40)
[2017-08-25] MEDS ORDERED: SENN1TAB7 PO (07:40)
[2017-08-25] MEDS: FAMOTIDINE 20 MG TABLET PO SCH (09:17)
[2017-08-25] MEDS: CHOLECALCIFEROL 1,000 UNIT TABLET PO SCH (09:17)
[2017-08-25] MEDS: SENNA/DOCUSATE TABLET PO SCH (09:17)
[2017-08-25] MEDS: MULTIVITAMIN 1 TABLET PO SCH (09:17)
[2017-08-25] MEDS: OXYcodone IR 5MG TABLET PO PRN (12:22)
== END 2017-08-25 12:32 | disposition hospice, home (50) | DRG 388 ==
LOC: ED 18:54 → EDIP 18:59 → ED 19:24 → 4NOR 21:39 → 3NW 08-20 15:56
PROVIDERS: ADMIT Internal Medicine; ATTEND Internal Medicine
DX: K56.0 Paralytic ileus (principal); E43 Unspecified severe protein-calorie malnutrition; J90 Pleural effusion, not elsewhere classified; C56.9 Malignant neoplasm of unspecified ovary; N13.30 Unspecified hydronephrosis; F11.20 Opioid dependence, uncomplicated; N18.3 Chronic kidney disease, stage 3 (moderate); J98.11 Atelectasis; D53.9 Nutritional anemia, unspecified; D72.829 Elevated white blood cell count, unspecified; I12.9 Hypertensive chronic kidney disease with stage 1 through stage 4 chronic kidney disease, or unspecified chronic kidney disease; Z51.5 Encounter for palliative care; R79.89 Other specified abnormal findings of blood chemistry; R19.00 Intra-abdominal and pelvic swelling, mass and lump, unspecified site; Z68.23 Body mass index [BMI] 23.0-23.9, adult; Z91.013 Allergy to seafood; Z90.710 Acquired absence of both cervix and uterus
CPT/HCPCS: 36415; 74021; 74022; 80048; 80053; 81001; 83735; 84100; 84439; 84443; 85025; 87086; 96372; 99285; J1644; Q0162; J3480